=== PATIENT | male | born 1960 | race Caucasian/White ===

== ENCOUNTER → 2018-11-19 | Outpatient (CLI) | payer BC ==
[2018-11-19 16:52] LABS: Ionized Calcium 5.1 mg/dL (4.5-5.3)
[2018-11-20 00:17] LABS: African American GFR (CKD) 107.2 (60.0-200.0); Anion Gap 6.6 mmol/L (4.00-12.00); BUN/Creat Ratio 17.78 Ratio (12.00-20.00); Calcium 8.9 mg/dL (8.7-10.3); Carbon Dioxide 23.4 mmol/L (21.6-31.8); Non-African American GFR(CKD) 92.5 (60.0-200.0); Potassium 4.4 mmol/L (3.5-5.5)
== END ==
LOC: LABWHC1 16:12
PROVIDERS: ATTEND Physical Medicine & Rehabilitation
DX: G89.4 Chronic pain syndrome (principal); M48.02 Spinal stenosis, cervical region; M48.04 Spinal stenosis, thoracic region; M48.062 Spinal stenosis, lumbar region with neurogenic claudication; M51.35 Other intervertebral disc degeneration, thoracolumbar region; M47.812 Spondylosis without myelopathy or radiculopathy, cervical region; M47.814 Spondylosis without myelopathy or radiculopathy, thoracic region; M47.817 Spondylosis without myelopathy or radiculopathy, lumbosacral region; M51.17 Intervertebral disc disorders with radiculopathy, lumbosacral region; M54.6 Pain in thoracic spine; F17.200 Nicotine dependence, unspecified, uncomplicated; E11.8 Type 2 diabetes mellitus with unspecified complications; I10 Essential (primary) hypertension; E78.5 Hyperlipidemia, unspecified; K21.9 Gastro-esophageal reflux disease without esophagitis; G56.03 Carpal tunnel syndrome, bilateral upper limbs
CPT/HCPCS: 36415; 80048; 82330

== ENCOUNTER → 2019-02-11 | Outpatient (CLI) | payer BC ==
--- NOTE | 2019-02-11 09:10 | US ---
EXAMINATION TYPE: US duplex aorta DATE OF EXAM: 02/11/2019 COMPARISON: NONE CLINICAL HISTORY: Z13.6 screening for abdominal aortic aneurysm. EXAM MEASUREMENTS: Abdominal Aorta: Proximal: 2.0cm Mid: 2.4cm Distal: 1.7 Bifurcation: 0.9cm 0.8cm Patient of large body habitus with overlying bowel gas obscuring some portions of aorta. Appears wnl as visualized. IMPRESSION: Visualized portions of the abdominal aorta are within normal limits of size. Some bowel g as and patient body habitus do limit the evaluation evaluation.
== END | disposition home or self-care (01) ==
LOC: RADUSWWP 07:35
PROVIDERS: ATTEND Family Medicine
DX: R14.3 Flatulence (principal)
CPT/HCPCS: 93979

== ENCOUNTER → 2021-10-29 | Outpatient (CLI) | payer BC ==
[2021-10-29 16:55] LABS: INR 0.9 (<1.2); Partial Thromboplastin Time 24.5 sec (22.0-30.0); Prothrombin Time 10.2 sec (9.0-12.0)
[2021-10-29 22:20] LABS: Basophils # (A) 0.06 X 10*3/uL (0.00-0.10); Basophils % (A) 0.6 %; Eosinophils # (A) 0.03 X 10*3/uL (0.04-0.35); Eosinophils % (A) 0.3 %; HCT 44.6 % (39.6-50.0); HGB 14.2 g/dL (13.0-17.0); Immature Grans, Automated 0.5 %; Lymphocytes # (A) 1.28 X 10*3/uL (0.90-5.00); MCH 28.6 pg (27.0-32.0); MCHC 31.8 g/dL (32.0-37.0); MCV 89.9 fL (80.0-97.0); Mean Platelet Volume 11.7 fL (9.5-12.2); Monocytes # (A) 0.95 X 10*3/uL (0.20-1.00); Monocytes % (A) 8.9 %; NRBC Per 100 WBC 0 /100 WBCS (0.0-0.0); Neutrophils # (A) 8.31 X 10*3/uL (1.80-7.70); Neutrophils % (A) 77.7 %; Platelet Count 212 X 10*3/uL (140-440); RBC 4.96 X 10*6/uL (4.40-5.60); RDW 15.2 % (11.5-14.5); WBC 10.68 X 10*3/uL (4.50-10.00)
[2021-10-29 22:54] LABS: ALT 22 U/L (10-49); AST 26 U/L (14-35); African American GFR (CKD) 82.4 (60.0-200.0); Albumin 4.2 g/dL (3.8-4.9); Albumin/Globulin Ratio 1.71 (1.60-3.17); Alkaline Phosphatase 75 U/L (41-126); BUN/Creat Ratio 15.45 Ratio (12.00-20.00); Calcium 9.3 mg/dL (8.7-10.3); Carbon Dioxide 24.6 mmol/L (20.0-27.5); Chloride 104 mmol/L (96-109); Globulin 2.5 g/dL (1.6-3.3); Glucose 117 mg/dL (70-110); Non-African American GFR(CKD) 71.1 (60.0-200.0); Potassium 4.2 mmol/L (3.5-5.5); Sodium 142 mmol/L (135-145); Total Bilirubin <0.15 mg/dL (0.30-1.20); Total Protein 6.7 g/dL (6.2-8.2)
[2021-10-30 04:03] LABS: Appearance,Urine Cloudy (Clear); Bilirubin,Urine Negative (Negative); Blood,Urine Negative (Negative); Color,Urine Yellow (Yellow); Ketones,Urine Negative (Negative); Nitrite,Urine Negative (Negative); Specific Gravity,Urine 1.017 (1.001-1.030)
[2021-10-30 04:15] LABS: Bacteria,Urine None Seen /HPF (None Seen)
== END | disposition home or self-care (01) ==
LOC: LABPAT 16:09
PROVIDERS: ATTEND Orthopaedic Surgery Orthopaedic Surgery of the Spine
DX: Z01.812 Encounter for preprocedural laboratory examination (principal); M48.061 Spinal stenosis, lumbar region without neurogenic claudication
CPT/HCPCS: 80053; 81001; 85025; 85610; 85730; 87070; 93005

== ENCOUNTER → 2021-11-02 | Outpatient (CLI) | payer BC ==
--- NOTE | 2021-11-02 13:56 | XR ---
EXAMINATION TYPE: XR chest 2V DATE OF EXAM: 11/02/2021 COMPARISON: NONE HISTORY: Presurgical testing TECHNIQUE: Frontal and lateral views of the chest are obtained. FINDINGS: There is no focal air space opacity, pleural effusion, or pneumothorax seen. The cardiac silhouette size is within normal limits. There is mild spinal curvature noted, there is thoracic spon dylosis. Eventration of right hemidiaphragm. Aorta is dense. Likely a pectus deformity. The osseous structures are intact. IMPRESSION: No acute cardiopulmonary process.
== END | disposition home or self-care (01) ==
LOC: RADXRMAIN 12:28
PROVIDERS: ATTEND Orthopaedic Surgery Orthopaedic Surgery of the Spine
DX: Z01.818 Encounter for other preprocedural examination (principal)
CPT/HCPCS: 71046

== ENCOUNTER 2021-11-03 10:39 | Observation (INO) | payer BC ==
[~2021-11-03 10:39] MED LIST: DEXAMETHASONE SOD PHOSPHATE 4 MG/ML 1 ML VIAL IV ONE; ONDANSETRON 4 MG/2 ML VIAL IVP ONE; ceFAZolin 1,000 MG in SODIUM CHLORIDE 0.9% IRRIGATIO 1,000 ML IRRIGATION PRN
[2021-11-03] MEDS: LIDOCAINE 1% (10MG/ML) FOR IV START INTRADERMA PRN ×2 (11:20→11:40)
[2021-11-03] MEDS: LACTATED RINGERS 1,000 ML IV SCH ×2 (11:20→11:40)
[2021-11-03 11:39] LABS: Glucose,Whole Blood 127 mg/dL (70-110)
[2021-11-03] MEDS ORDERED: fentaNYL (PF) 50 MCG/ML 2 ML AMP ONE (12:05)
[2021-11-03] MEDS ORDERED: PHENYLEPHRINE-0.9% NACL SYG 1,000 MCG/10 ML SYRINGE ONE (12:05)
[2021-11-03] MEDS ORDERED: GLYCOPYRROLATE 0.2 MG/ML 2 ML VIAL ONE (12:05)
[2021-11-03] MEDS ORDERED: LABETALOL 5 MG/ML VIAL MDV ONE (12:05)
[2021-11-03] MEDS ORDERED: SUCCINYLCHOLINE CHLORIDE 200 MG/10 ML VIAL IV ONE (12:05)
[2021-11-03] MEDS ORDERED: PROPOFOL 10 MG/ML 20 ML VIAL IV ONE (12:05)
[2021-11-03] MEDS ORDERED: LIDOCAINE 2% INJ 20 MG/ML (2 ML VIAL) ONE (12:05)
[2021-11-03] MEDS ORDERED: MIDAZOLAM 2 MG/2 ML VIAL ONE (12:05)
[2021-11-03] MEDS ORDERED: HYDROmorphone (PF) 1 MG/ML ONE (12:05)
[2021-11-03] MEDS ORDERED: KETAMINE 10 MG/ML 20 ML VIAL ONE (12:05)
[2021-11-03] MEDS ORDERED: FUROSEMIDE 10 MG/ML 2 ML VIAL ONE (12:05)
[2021-11-03] MEDS ORDERED: NEOSTIGMINE 1 MG/ML 10 ML VIAL ONE (12:05)
[2021-11-03] MEDS ORDERED: LIDOCAINE 4% LTA KIT (4 ML) TOPICAL ONE (12:05)
[2021-11-03] MEDS ORDERED: ePHEDrine 50 MG/ML 1 ML VIAL ONE (12:05)
[2021-11-03] MEDS ORDERED: ROCURONIUM 10 MG/ML (5 ML VIAL) IV ONE (12:05)
[2021-11-03] MEDS ORDERED: THROMBIN (BOVINE) 5,000 UNIT VIAL TOPICAL ONE (13:23)
[2021-11-03] MEDS ORDERED: GELATIN SPONGE,ABSORB (LARGE) 1 EACH SPONGE TOPICAL ONE (13:23)
[2021-11-03] MEDS ORDERED: BUPIVACAIN-EPI 0.25%-1:200,000 30 ML VIAL SQ ONE (13:23)
[2021-11-03 14:50] LABS: Glucose,Whole Blood 118 mg/dL (70-110)
[2021-11-03] MEDS ORDERED: SODIUM CHLORIDE 0.9% 100 ML with ceFAZolin 2 GM IV ONE ×2 (15:46)
[2021-11-03] MEDS ORDERED: LACTATED RINGERS 1,000 ML IV ONE ×2 (15:46)
[2021-11-03] MEDS ORDERED: BENZOCAINE/MENTHOL LOZENG 1 EACH LOZENGE MUCOUS MEM PRN (17:03)
[2021-11-03] MEDS ORDERED: CYCLOBENZAPRINE 10 MG TAB PO PRN (17:03)
[2021-11-03] MEDS ORDERED: MAGNESIUM HYDROXIDE 2,400 MG/10 ML CUP PO PRN (17:03)
--- NOTE | 2021-11-03 17:04 | XR ---
EXAMINATION TYPE: XR lumbar spine 2 or 3V, FL guidance operating room DATE OF EXAM: 11/03/2021 COMPARISON: NONE HISTORY: Minimally invasive effusion Fluoroscopy support supplied to the referring clinician. See dictated report from orthopedic surgery , 35 seconds fluoroscopy time, single intraoperative C-arm image documents the procedure
[2021-11-03] MEDS ORDERED: NITROGLYCERIN SL TABS 0.4 MG TAB SUBLINGUAL PRN (17:06)
[2021-11-03] MEDS ORDERED: ACETAMINOPHEN TAB 500 MG TAB PO PRN (17:06)
--- NOTE | 2021-11-03 17:16 | P.OP ---
Date of Procedure: 11/03/21 Preoperative Diagnosis: Spondylolisthesis L4 5, severe spinal stenosis L 45 and recurrent stenosis L5- S1, degenerative disc disease, facet cyst L4 5, low back pain, severe lower extremity radiculopathy, lower extremity weakness, history of lumbar decompression L5-S1 Postoperative Diagnosis: Same Anesthesia: GETA Pathology: none sent Condition: stable Disposition: PACU Description of Procedure: DESCRIPTION OF PROCEDURE(S): BRIEF OPERATIVE NOTE Preoperative Diagnosis: Spondylolisthesis L4 5, severe spinal stenosis L 45 and recurrent stenosis L5-S1, degenerative disc disease, facet cyst L4 5, low back pain, severe lower extremity radiculopathy, lower extremity weakness, history of lumbar decompression L5-S1 Postoperative Diagnosis: Same Procedure: Laminectomy and decompression L4 5 Revision laminectomy decompression L5-S1 Computer CT navigation aided Minimally invasive Posterior lateral decompression and facet fusion L4 5 L5-S1 Minimally invasive Transforaminal lumbar interbody fusion for a 360 fusion L4 5 Discectomy for decompression L4 5 Placement of interbody graft L4 5 Use of computer navigation for fusion L4 5 L5-S1 Local autogenous bone grafting Aspiration of bone marrow from the vertebral body pedicle at L4 on the right Use of bone graft extenders Excision of epidural mass of L4 5 presumed facet cyst Use of Cell Saver Surgeon: Dr. Viveros Locator: Romeo LINDSEY who is present throughout the entire the case persistence during positioning, dissection, exposure, visualization, and all crucial elements of the case as well as closure. Anesthesia: General anesthesia per Dr. Villanueva Estimated blood loss: Approximately 200 mL with 71 mL given back through Cell Saver Complications: None apparent Components implanted: K2M minimally invasive [place] pedicle screw system with screws measuring 6.5 mm in diameter to rods one [place] interbody cage with 10 mL of osteo amp bio4 bone graft substitute and 30 mL of the BX bone fibers to supplement the local autogenous bone graft and bone marrow aspirate Disposition: To recovery room in good stable condition. OPERATIVE INDICATIONS The patient has had severe issues at their lower extremity in her lower back over the past several years with significant worsening over the past several months. Over the past few months the patient had pain at their back and their lower extremities. The patient is having severe radicular symptoms at their lower extremity with weakness. The patient is having significant pain in their back. They are unable to obtain any comfort. We did aggressive conservative treatment with medications therapy and interventional pain management however thery were not having any relief. The patient also showed evidence of a listhesis with some dynamic instability. The patient has been through c onservative treatment. He has also had laminectomy decompression at L5-S1 on the left side in the past some improvement in his left lower extremity when he had his surgery years ago. However he had recurrent symptoms at his back and lower extremities with significant radiculopathy bilateral lower extremity is worse on the left than the right. He was found have a facet cyst and severe stenosis at L4 5 recurrent stenosis L5-S1 with a dynamic listhesis of L4 5 and severe disc degeneration L4 5 and L5-S1 We discussed various treatment options including surgery, and the patient wishes to proceed with surgery We discussed the risk, patient's alternatives and benefits of surgery including but not limited to, risk of bleeding risk of infection, risk of need for further surgery, risk of decreased, loss of motion, muscle function, malunion nonunion, hardware failure, nerve damage, paralysis, heart attack, blindness and . They understood issues with the current pandemic and the possibility of exposure. OPERATIVE SUMMARY After discussing all the risks, patient alternatives and benefits at length, the patient elected to proceed with surgical intervention, signed informed consent, and presented for their procedure. The patient was seen and examined in the preoperative holding area and the surgical site was marked. The patient was given antibiotics and brought to the operating room. The patient was sedated and intubated by anesthesia in standard fashion. The patient was positioned on to the operating room table in a prone position on the appropriate frame which was well-padded and well molded. We were careful to pad any bony prominences and pressure points. We were careful to maintain the patient's cervical spine and good neutral alignment and position throughout. The patient was prepped and draped in a normal standard fashion. An appropriate timeout and keystone protocol performed. We were able to proceed with the surgery. The local wound area was infiltrated with local anesthetic. Over the right iliac crest I was able to make small stab incisions and establish a guidepin screw fixation to the iliac crest 2. I was able place the computer referencing device over the guidepins to establish an appropriate reference point for the Ziem CT navigation. We then were able to place patient in an appropriate drape and do a navigation spin for visualization and 3-D reconstruction of the lumbar spine. I was able utilize C-arm guidance and navigation to establish appropriate position over the pedicles bilaterally at the appropriate levels . With the appropriate levels at L4 5 and L5-S1 confirmed was able to make small incisions over the appropriate pedicle sites bilaterally. Utilizing the computer navigation device I was able to establish bony landmarks at the right iliac crest for a bony reference point for the navigation device. I was able to establish a Jamshidi needle over the lateral aspect of the pedicle and advanced the trocar into the pedicle being careful not to breech superiorly inferiorly medially or laterally using computer navigation device. Position was confirmed regularly with AP and lateral images on C-arm and with the computer navigation device at the appropriate levels bilaterally. I was able to establish the trocar into the pedicle appropriately into the posterior aspect of the vertebral body bilaterally at the appropriate levels. This was done at each of the pedicle positions and each of the vertebrae. At the superior vertebrae I was able to take approximately 25 mL of bone aspiration for use later in the case to supplement the allograft and autograft bone. I was able place the guidewire into the trocar and into the vertebral body appropriately under C-arm guidance. Dissection was taken down over the wire to the appropriate starting position for the screw placed. The appropriate length screw was chosen, threaded over the guidewire and screwed appropriately into the pedicle and vertebral body under C-arm guidance in excellent alignment and position with good bony purchase. This is done at each of the screw sites at the appropriate levels at L4 5 and S1.. With the screws intact I extended the incision to connect the screw hole sites on the most symptomatic side. I dissected down to establish access over the pars and lamina to the base of the spinous process. I was able to expose the facet joint. The capsule the facet was taken down and showed some facet arthrosis at the joint. I was able to use a combination of curettes and [place] rongeurs and a high-speed drill to take down the facet joint and do a facetectomy. I was able get excellent foraminal decompression and central decompression with undermining across midline to perform a laminectomy centrally and contralaterally. I was able get good central decompression. The ligamentum flavum was taken down to further decompress centrally and at bilateral neural foramen. At L4 5 there was a large epidural mass which was a presumed facet cyst. It seemed to extend from the L4 5 left facet and was thickened and filled with synovial type fluid. Parts of the cyst were adherent to the dura. I had to remove a significant portion of the facet cyst tagged gain further decompression. I had to leave some of the cyst that was adherent to the dura intact as trying to remove it further may have damaged the neural structures. I was able get free mobile nerve root and get excellent decompression around the facet cyst L4 5. I attempted to pass some assessment from the cyst however it was inadvertently discarded. At L4 5 I was able to expose the disc space and visualize the traversing nerve root. Note was made of some disc protrusion and disc herniation that was abutting the traversing nerve root at the level causing further compression of the nerve root. I was able to establish a annulotomy at the appropriate level protecting soft tissue and neural structures. Note was made of some disc desiccation at the disc. I performed a complete discectomy with accommodation of curettes and rasps and scrapers. I was able get good endplate preparation at the disc space. I sized for the appropriate size interbody spacer protecting the soft tissue and neural structures. The wound was copiously irrigated and suctioned dry. There is no evidence of any dural tear or leak. I was able to pack the disc space with local autogenous bone graft as well as a small amount of bone graft which was also placed into the interbody cage itself. Protecting the soft tissue structures and neural structures I was able place the interbody cage in good alignment and good position with good fit and fill at the interbody space. Position was confirmed with C-arm guidance. This was all completed L4 5 however at L5-S1 was not able to get good access to the disc space. I was able to get good decompression decided to forego the discectomy and interbody cage placement at L5-S1. With the screws intact I felt I had good structural stability at L4 5 and S1. Good hemostasis maintained. There is no evidence of any dural tear or leak. The wound was irrigated and suctioned dry. With the hardware intact, intraoperative C-arm imaging was again taken which showed good alignment and position of the hardware at the appropriate levels at L4-L5 and S1. We were then able to measure, contour and place the rods and appropriate hardware bilaterally. I was able to place capcrews, tighten them down, and torque them with the torque screwdriver appropriately. With this intact I was able to place the local autogenous bone graft with additional bone graft enhancer as necessary into the posterior lateral gutters over the decorticated transverse processes and facet joints on the contralateral side. The remainder of the bone graft was placed over the facet joint on the contralateral side after taking down the facet joint capsule. With the bone graft intact, a stable construct, and good decompression at the appropriate levels, we were able to proceed with closure. Good hemostasis was maintained. There is no evidence of dural tear or leak. The fascia was closed for a watertight closure. he subcuticular tissue was closed with absorbable suture. The wound was cleaned and dried and dressed with the appropriate dressing. The drapes were broken down. The patient was gently rolled back onto their hospital bed being careful to maintain their cervical spine and good neutral alignment and position. They were woken up by anesthesia, extubated, and brought to the recovery room in good stable condition. The patient will be admitted to the hospital for appropriate postoperative care, medical management and monitoring. We will continue to follow them closely about the postoperative course.
[2021-11-03] MEDS: HYDROmorphone 0.5 MG/0.5 ML SYRINGE IVP PRN ×2 (17:25→17:45)
[2021-11-03] MEDS ORDERED: hydrALAZINE HCL 20 MG/ML 1 ML VIAL IVP ONE (17:48)
[2021-11-03] MEDS ORDERED: fentaNYL (PF) 50 MCG/ML 2 ML AMP IVP ONE (18:05)
[2021-11-03] MEDS: diazePAM 5 MG TAB PO PRN (19:26)
[2021-11-03] MEDS: HYDROcodone/APAP 5-325MG 1 EACH TAB PO PRN ×2 (19:26→23:31)
[2021-11-03] MEDS: METOPROLOL TARTRATE 25 MG TAB PO SCH (19:32)
[2021-11-03] MEDS: BACLOFEN 10 MG TAB PO SCH (19:32)
[2021-11-03] MEDS: ATORVASTATIN 80 MG TAB PO SCH (19:32)
[2021-11-03] MEDS: NITROFURANTOIN MONOHYD/M-CRYST 100 MG CAP PO SCH (19:32)
[2021-11-03] MEDS: DOXAZOSIN 2 MG TAB PO SCH (19:32)
[2021-11-03] MEDS: metFORMIN 500 MG TAB PO SCH (19:32)
[2021-11-03] MEDS: SODIUM CHLORIDE 0.9% 1,000 ML IV SCH (19:38)
[2021-11-03] MEDS: ONDANSETRON 4 MG/2 ML VIAL IVP PRN (20:15)
--- NOTE | 2021-11-04 00:49 | P.CONS ---
History of Present Illness - Reason for Consult Consult date: 11/03/21 - History of Present Illness Patient is a 61-year-old male with a PMH of type II DM, hypertension, hyperlipidemia, and spinal stenosis who was admitted for an elective laminectomy and spinal decompression. The patient underwent the procedure earlier today with no immediate postoperative consultations and was seen postoperatively on the surgical unit. He reported ongoing lower back pain, rated at 8 out of 10 at the time of interview. Also reports some mild numbness of the left leg. Patient has been out of bed and has passed urine and flatus. He reports compliance with all his medications at home. Denied expressing chest discomfort, shortness of breath, nausea, vomiting, fever, chills, cough. Review of systems: Pertinent positives and negatives as discussed in HPI, a complete review of systems was performed and all other systems are negative. Physical examination: General: non toxic, no distress, appears at stated age, obese Derm: no unusual rashes/lesions, warm Head: atraumatic, normocephalic, symmetric Eyes: EOMI, no lid lag, anicteric sclera, pupils equal round reactive to light ENT: Nose and ears atraumatic Neck: No cervical lymphadenopathy, trachea midline, supple Mouth: no lip lesion, mucus membranes moist Cardiovascular: S1S2 reg, no murmur, positive dorsalis pedis pulse bilateral, no edema Lungs: CTA bilateral, no rhonchi, no rales, no accessory muscle use Abdominal: soft, nontender to palpation, no guarding Ext: no gross muscle atrophy, no contractures, Neuro: CN II-XI grossly intact, no gross focal neuro deficits Psych: Alert, oriented, appropriate affect Assessment/plan Chronic conditions: Diabetes, hypertension, hyperlipidemia -Continue with home meds Status post laminectomy and spinal decompression -Defer management including pain control and DVT prophylaxis to the primary surgical service We appreciate this opportunity to be involved in this patient's care. We will follow the patient with you. For any further questions, please not hesitate to contact the sound inpatient team. Past Medical History Past Medical History: COPD, Diabetes Mellitus, GERD/Reflux, Hyperlipidemia, Hypertension, Musculoskeletal Disorder, Osteoarthritis (OA) Additional Past Medical History / Comment(s): spinal stenosis, cyst on lumbar vertebrae, DDD, esophageal Nutcracker syndrome-takes nitro for prn, currently taking A/B for UTI History of Any Multi-Drug Resistant Organisms: None Reported Past Surgical History: Back Surgery, Orthopedic Surgery, Tonsillectomy Additional Past Surgical History / Comment(s): lumbar laminectomy years ago, thoracic back surg., ORIF right ankle, cyst removed right ankle, left knee arthroscopy, mult. surgs. right knee, epidural pain procedures Past Anesthesia/Blood Transfusion Reactions: No Reported Reaction Past Psychological History: No Psychological Hx Reported Smoking Status: Current every day smoker Past Alcohol Use History: Rare Additional Past Alcohol Use History / Comment(s): 1ppd for 40 yrs. Past Drug Use History: Marijuana Additional Drug Use History / Comment(s): gummies occasionally - Past Family History Mother Family Medical History: Hyperlipidemia Medications and Allergies Home Medications Medication Instructions Recorded Confirmed Type Acetaminophen [Tylenol Extra 500 mg PO Q6HR PRN 11/02/21 11/02/21 History Strength] Aspirin 81 mg PO DAILY 11/02/21 11/02/21 History Atorvastatin [Lipitor] 80 mg PO HS 11/02/21 11/02/21 History Baclofen [Lioresal] 10 mg PO TID 11/02/21 11/02/21 History Cholecalciferol (Vitamin D3) 125 mcg PO DAILY 11/02/21 11/02/21 History [Vitamin D3 (125 MCG = 5,000 IU)] Cinnamon Bark [Cinnamon] 500 mg PO DAILY 11/02/21 11/02/21 History Fluticasone Propionate [Flonase 1 spray EA NOSTRIL DAILY 11/02/21 11/02/21 History Allergy Relief] HYDROcodone/APAP 5-325MG [[place]osen[place]n 1 tab PO BID PRN 11/02/21 11/02/21 History 5-325] Metoprolol Tartrate [Lopressor] 25 mg PO BID 11/02/21 11/02/21 History Nitrofurantoin Monohyd/M-Cryst 100 mg PO Q12HR 11/02/21 11/02/21 History [Macrobid] Nitroglycerin 0.4 mg SL AC-TID PRN 11/02/21 11/02/21 History Pantoprazole [Protonix] 40 mg PO DAILY 11/02/21 11/02/21 History Terazosin [Hytrin] 2 mg PO HS 11/02/21 11/02/21 History amLODIPine [Norvasc] 10 mg PO DAILY 11/02/21 11/02/21 History lisinopriL [Zestril] 30 mg PO DAILY 11/02/21 11/02/21 History metFORMIN HCL [Glucophage] 500 mg PO BID 11/02/21 11/02/21 History Allergies Allergy/AdvReac Type Severity Reaction Status Date / Time celecoxib [From Celebrex] Allergy red & Verified 11/01/21 15:53 flushed, shaking Physical Exam Vitals: Vital Signs Temp Pulse Pulse Resp BP Pulse Ox 11/03/21 20:00 104 H 11/03/21 18:57 98.0 F 96 20 191/77 97 11/03/21 18:40 65 16 150/70 97 11/03/21 18:25 70 16 155/77 97 11/03/21 18:10 68 17 189/94 98 11/03/21 17:55 70 16 190/95 99 11/03/21 17:40 73 16 174/83 98 11/03/21 17:25 82 16 192/92 100 11/03/21 17:12 97.2 F L 78 18 190/84 99 11/03/21 11:14 97.8 F 68 16 193/97 97 Intake and Output 11/03/21 11/03/21 11/04/21 14:59 22:59 06:59 Intake Total 2050 1550 Output Total 1350 Balance 2050 200 Intake: IV 2050 1550 Output: Urine 1150 Estimated Blood Loss 200 Other: Voiding Method Indwelling Catheter Weight 103.1 kg 103.1 kg Results Labs: Abnormal Lab Results - Last 24 Hours (Table) 11/03/21 11/03/21 Range/Units 11:28 14:47 POC Glucose (mg/dL) 127 H 118 H (70-110) mg/dL
[2021-11-04] MEDS: HYDROcodone/APAP 5-325MG 1 EACH TAB PO PRN ×5 (04:08→20:40)
[2021-11-04] MEDS: diazePAM 5 MG TAB PO PRN ×3 (04:41→20:40)
[2021-11-04] MEDS: ONDANSETRON 4 MG/2 ML VIAL IVP PRN ×2 (04:41→11:22)
[2021-11-04] MEDS: HYDROmorphone 1 MG/ML 1 ML SYRINGE IVP PRN ×3 (07:32→21:44)
[2021-11-04] MEDS: NITROFURANTOIN MONOHYD/M-CRYST 100 MG CAP PO SCH ×2 (10:40→20:41)
[2021-11-04] MEDS: SENNOSIDES-DOCUSATE SODIUM 1 EACH TAB PO SCH (10:40)
[2021-11-04] MEDS: ASPIRIN 81 MG PO SCH (10:40)
[2021-11-04] MEDS: PANTOPRAZOLE 40 MG TABLET PO SCH (10:40)
[2021-11-04] MEDS: BACLOFEN 10 MG TAB PO SCH ×3 (10:40→21:37)
[2021-11-04] MEDS: CHOLECALCIFEROL 125 MCG (5000 IU) TABLET PO SCH (10:40)
[2021-11-04] MEDS: lisinopriL 10 MG TAB PO SCH (10:41)
[2021-11-04] MEDS: amLODIPine 10 MG TAB PO SCH (10:41)
[2021-11-04] MEDS: METOPROLOL TARTRATE 25 MG TAB PO SCH ×2 (10:41→20:41)
[2021-11-04] MEDS: metFORMIN 500 MG TAB PO SCH (10:41)
[2021-11-04 10:43] LABS: Basophils # (A) 0.05 X 10*3/uL (0.00-0.10); Basophils % (A) 0.3 %; Eosinophils # (A) 0.42 X 10*3/uL (0.04-0.35); Eosinophils % (A) 2.5 %; HCT 41.3 % (39.6-50.0); HGB 13.3 g/dL (13.0-17.0); Immature Grans, Automated 0.5 %; Lymphocytes # (A) 0.95 X 10*3/uL (0.90-5.00); Lymphocytes % (A) 5.7 %; MCHC 32.2 g/dL (32.0-37.0); MCV 90.2 fL (80.0-97.0); Monocytes # (A) 1.28 X 10*3/uL (0.20-1.00); Monocytes % (A) 7.7 %; NRBC Per 100 WBC 0 /100 WBCS (0.0-0.0); Neutrophils # (A) 13.79 X 10*3/uL (1.80-7.70); Neutrophils % (A) 83.3 %; Platelet Count 190 X 10*3/uL (140-440); RBC 4.58 X 10*6/uL (4.40-5.60); RDW 15.7 % (11.5-14.5); WBC 16.58 X 10*3/uL (4.50-10.00)
[2021-11-04] MEDS: FLUTICASONE 50MCG/SPRAY NASAL 16GM EA NOSTRIL SCH (10:48)
[2021-11-04 10:56] LABS: African American GFR (CKD) 82.4 (60.0-200.0); Anion Gap 13.7 mmol/L (10.00-18.00); BUN/Creat Ratio 14.27 Ratio (12.00-20.00); Blood Urea Nitrogen 15.7 mg/dL (9.0-27.0); Calcium 8.3 mg/dL (8.7-10.3); Carbon Dioxide 24.3 mmol/L (20.0-27.5); Non-African American GFR(CKD) 71.1 (60.0-200.0)
[2021-11-04] MEDS ORDERED: PROCHLORPERAZINE INJ 10 MG/2 ML VIAL IVP PRN (11:03)
[2021-11-04] MEDS ORDERED: DEXTROSE 50% SYRINGE 50 ML IVP PRN ×2 (11:11)
--- NOTE | 2021-11-04 11:27 | P.PN ---
Subjective Progress Note Date: 11/04/21 Hospital course: Patient is a very pleasant 61-year-old male with a past medical history of hypertension, hyperlipidemia, type II pzr-mzxzuio-vfmiunnfp diabetes mellitus, BPH, and severe spinal stenosis. Patient is currently admitted under orthospine surgical team and is status post elective laminectomy and spinal decompression completed on 11/03/[address] Viveros. Patient underwent a revision laminectomy and decompression L5 through S1 and a laminectomy and decompression of L4 through L5. We were consulted for continued medical management throughout patient's hospitalization. Physical exam: Patient seen and fully evaluated at bedside this morning. Patient sitting up in chair. Drain remains in place to lower back and dressing intact. Patient reports postoperative pain is currently managed at this time. Reaves catheter remains in place. Patient reports he has been experiencing some postoperative nausea and vomiting. Compazine ordered in addition to Jamie RN instructed she may rotate these medications every 4 hours as needed for nausea/vomiting. Patient denies having any new onset numbness/tingling/weakness in his extremities. Patient does report he continues to have previously experienced. Numbness and tingling to bilateral lower extremities that he believes has slightly improved since surgery. Vital signs reviewed and stable. General: Nontoxic, no distress and appears stated age. Derm: Skin warm and dry, normal coloration for ethnicity. Head: Atraumatic, normocephalic and symmetric. Eyes: EOMs intact, no lid lag, and anicteric sclera Mouth: no lip lesions, mucus membranes moist Cardiovascular: regular rate and rhythm with normal S1S2, no murmur, positive posterior tibial pulses bilaterally, and cap refill < 2 seconds. Lungs: Respirations even, regular, and unlabored on room air. Lungs CTA bilaterally, no rhonchi, no rales, no wheezing, and no accessory muscle usage. Abdominal: soft, nontender to palpation, no guarding, no appreciable organomegaly Ext: ROM intact. No gross muscle atrophy, no edema, no contractures Neuro: Speech clear, face symmetrical and CN II-XII grossly intact with no noted focal neuro deficits Psych: Alert and oriented to person, place, time, and situation. Appropriate and pleasant affect. Assessment and Plan of Care: Leukocytosis -Likely reactive, resulting both from surgery and treatment with steroids. -No signs of infection at this time. -We will continue to monitor with repeat a.m. labs. Status post laminectomy and decompression of L4 through L5 and revision laminectomy and decompression L5 through S1 -Surgical procedure completed 11/03/[address] Viveros. -Management per primary admitting orthospine surgical team including DVT prophylaxis, pain management, weightbearing, and PT/OT. -Patient currently on daily aspirin 81 mg and SCDs for DVT prophylaxis. Type 2 diabetes mellitus with hyperglycemia -Morning glucose 164 -Metformin held during hospitalization and patient placed on glycemic protocol with NovoLog sliding scale. Hypertension -Monitor vital signs and continue daily medication regimen with amlodipine, lisinopril, and metoprolol. Hyperlipidemia -Continue daily medication regimen with atorvastatin 80 mg nightly. -Continue heart healthy and carb consistent diet. BPH -Continue daily medication regimen with Doxazosin 2 mg nightly. Thank you for allowing us to participate in the care of this pleasant patient. Do not hesitate to contact us with questions. Someone can be reached from the [facility] hospitalist group all hours of the day at [phone] or via [employer]. I reviewed the documentation as provided by the MECHE above, who is the original author of this note. I agree with the documented assessment and plan, with the following changes: none Objective - Vital Signs Vital signs: Vital Signs Temp 98.9 F 11/04/21 07:33 Pulse 102 H 11/04/21 07:33 Resp 17 11/04/21 07:33 BP 165/82 11/04/21 07:33 Pulse Ox 94 L 11/04/21 08:41 FiO2 Intake & Output 11/03/21 11/04/21 11/04/21 18:59 06:59 18:59 Intake Total 3601 Output Total 1350 Balance 2251 Weight 103.1 kg Intake: IV 3601 Output: Urine 1150 Estimated Blood Loss 200 Other: Voiding Method Indwelling Catheter - Labs CBC & Chem 7: 11/04/21 07:23 11/04/21 07:23 Labs: Abnormal Lab Results - Last 24 Hours (Table) 11/03/21 11/03/21 Range/Units 11:28 14:47 POC Glucose (mg/dL) 127 H 118 H (70-110) mg/dL
--- NOTE | 2021-11-04 11:55 | P.PN ---
Progress Note - Text Progress Note Date: 11/04/21 Postoperative day #1 Patient is seen and examined today at bedside. The patient has some pain around the surgical site as expected. Pain is being controlled with medication. The patient feels he may have some improvement in his leg pain but he still has numbness tingling and is having significant pain in his back from his surgery. He is not able to void yet he still has a Reaves intact. He says he was nauseous last night but is not having nausea this morning. Physical Exam Afebrile with stable vital signs Abdomen is soft nontender. Chest has good excursion deep and space expiration The incision site is clean dry and intact. No erythema there is no purulence. Extremities have not had neurologic change from prior to surgery. He has sustained dorsal flexion plantar flexion and EHL but still has some weakness particularly to the left which is unchanged from prior to surgery the incision site is dry and healing appropriately Calves and thighs were soft nontender without evidence of DVT. Assessment/Plan Postoperative day #1 status post minimally invasive decompression fusion L45 L5- S1 for severe cervical stenosis with spondylolisthesis lower extremity radiculopathy and facet cyst Patient is progressing as expected from the surgery. He is already up in a chair which is encouraging but would like him to mobilize further so that he can void on his own. He saw his Reaves intact and we should try to get the Reaves out this evening if he is able. Hopefully his pain will continue to improve and he will start have better function in his lower extremities and we will continue his mobilization. We will continue to increase the patient's mobilization with therapy. We will continue pain control with oral or IV medications. We'll continue to follow patient closely. He may need some help with planning for his facility at home after discharge perhaps in 1-2 days.
[2021-11-04] MEDS: HYDROmorphone 0.5 MG/0.5 ML SYRINGE IVP PRN (12:24)
[2021-11-04] MEDS: SODIUM CHLORIDE 0.9% 1,000 ML IV SCH ×2 (12:32→23:46)
[2021-11-04 12:42] LABS: Glucose,Whole Blood 126 mg/dL (70-110)
[2021-11-04] MEDS: INSULIN ASPART (NovoLOG) 100 UNIT/ML VIAL SQ SCH ×3 (12:49→21:40)
[2021-11-04 17:00] LABS: Glucose,Whole Blood 123 mg/dL (70-110)
[2021-11-04] MEDS: ATORVASTATIN 80 MG TAB PO SCH (20:41)
[2021-11-04] MEDS: DOXAZOSIN 2 MG TAB PO SCH (20:41)
[2021-11-04 21:39] LABS: Glucose,Whole Blood 148 mg/dL (70-110)
[2021-11-05] MEDS: HYDROmorphone 0.5 MG/0.5 ML SYRINGE IVP PRN (02:00)
[2021-11-05] MEDS: HYDROcodone/APAP 5-325MG 1 EACH TAB PO PRN ×2 (06:53→10:05)
[2021-11-05] MEDS: diazePAM 5 MG TAB PO PRN (06:54)
[2021-11-05 07:06] LABS: Glucose,Whole Blood 138 mg/dL (70-110)
[2021-11-05] MEDS: INSULIN ASPART (NovoLOG) 100 UNIT/ML VIAL SQ SCH (07:18)
[2021-11-05] MEDS: METOPROLOL TARTRATE 25 MG TAB PO SCH (07:25)
[2021-11-05] MEDS: NITROFURANTOIN MONOHYD/M-CRYST 100 MG CAP PO SCH (07:26)
[2021-11-05] MEDS: SENNOSIDES-DOCUSATE SODIUM 1 EACH TAB PO SCH (07:26)
[2021-11-05] MEDS: lisinopriL 10 MG TAB PO SCH (07:26)
[2021-11-05] MEDS: amLODIPine 10 MG TAB PO SCH (07:26)
[2021-11-05] MEDS: ASPIRIN 81 MG PO SCH (07:26)
[2021-11-05] MEDS: CHOLECALCIFEROL 125 MCG (5000 IU) TABLET PO SCH (07:26)
[2021-11-05] MEDS: BACLOFEN 10 MG TAB PO SCH (07:26)
[2021-11-05] MEDS: PANTOPRAZOLE 40 MG TABLET PO SCH (07:27)
[2021-11-05 07:30] VITALS: RESP 18; TEMP 97.8
--- NOTE | 2021-11-05 08:31 | P.DS ---
Providers Date of admission: 11/04/21 13:43 Expected date of discharge: 11/05/21 Attending physician: Ni Viveros Consults: 11/03/21 17:03 Consult Physician Routine Consulting Provider: Stephane Pond Consult Reason/Comments: Medical management Do you want consulting provider notified?: Yes Primary care physician: Jamal Almaguer - Discharge Diagnosis(es) (1) S/P lumbar fusion Current Visit: Yes Status: Acute (2) Spondylolisthesis at L4-L5 level Current Visit: Yes Status: Acute (3) Lumbar stenosis Current Visit: Yes Status: Acute (4) Lumbosacral stenosis Current Visit: Yes Status: Acute (5) Low back pain Current Visit: Yes Status: Acute (6) Radiculopathy with lower extremity symptoms Current Visit: Yes Status: Acute (7) Lower extremity weakness Current Visit: Yes Status: Acute (8) History of laminectomy Current Visit: Yes Status: Acute (9) Hypertension Current Visit: Yes Status: Acute (10) Hyperlipidemia Current Visit: Yes Status: Acute (11) Type 2 diabetes mellitus Current Visit: Yes Status: Acute (12) Irritable bowel syndrome Current Visit: Yes Status: Acute (13) Constipation Current Visit: Yes Status: Acute Hospital Course: This is a pleasant 61-year-old male who presented with L4-5 spondylolisthesis, L4-5 severe spinal spinal stenosis, L5-S1 and recurrent stenosis, lumbar degenerative disc disease, L4-5, listhesis, low back pain, severe lower extremity radiculopathy, lower extremity weakness, and history of lumbar decompression at L5-S1 who who failed outpatient conservative therapy. He was admitted for an L4-5 and L5-S1 minimally invasive posterior lateral decompression and fusion with transforaminal lumbar interbody fusion at L4-5 and revision decompression at L5-S1. The patient tolerated the procedure well and did well postoperatively. He has been able to ambulate to the restroom independently. He is utilizing a walker. He has a walker at home. He feels he is ready for discharge home today. Condition on day of discharge stable. Patient will be discharged home. Patient was cleared preoperatively for surgery by Dr. Almaguer. Patient currently denies any nausea, vomiting, fever, or chills. Patient is eating and voiding freely without difficulty. Patient may shower Optifoam dressing intact. Patient may remove Optifoam dressing in 3 days and shower without a dressing at that time. Patient should refrain from driving until at least after their first follow-up appointment in the office.P Atient should avoid excessive bending, lifting, and twisting; no lifting greater than 10 pounds. MAPS has been reviewed today, , with an Overall Overdose Risk Score of . An "Opiod Start Talking" Form has been signed and placed in the patient's chart. A prescription has been written for Patient is also given prescription for Senokot 1 tab twice a day as the for constipation, cyclobenzaprine 10 mg 1 3 times a day is seen for muscle spasm, and Zofran 4 mg 1 tab every 6 hours as needed for nausea. He should avoid anti-inflammatory medications over the next 6 weeks postoperatively. Patient's other medical diagnoses include hypertension, hyperlipidemia, type 2 diabetes, irritable bowel syndrome, and constipation Physical Exam on day of discharge: Patient is awake, alert, and oriented 3 Vital signs stable Good chest excursion with deep inspiration and expiration Abdomen soft nontender No signs or symptoms of DVT; no calf pain Extensor hallucis longus, plantarflexion, and dorsiflexion positive sustained bilateral lower extremities Some increased pain at the left ankle with dorsiflexion and plantarflexion with active range of motion but not passive range of motion Surgical incision sites are dry and intact with a couple small spots of dried blood over the lumbar incision sites; no erythema, purulence, or signs of infection Optifoam dressing intact Procedures: L4-5 and L5-S1 minimally invasive posterior lateral decompression and fusion with transforaminal lumbar interbody fusion at L4-5 and revision decompression at L5-S1 Patient Condition at Discharge: Stable Plan - Discharge Summary Discharge Rx Participant: Yes New Discharge Prescriptions: New HYDROcodone/APAP 5-325MG [Morganza 5] 1 each PO Q4HR PRN #42 tab PRN Reason: Pain Cyclobenzaprine [Flexeril] 10 mg PO TID PRN #60 tab PRN Reason: Muscle Spasm Sennosides-Docusate Sodium [Senokot-S] 1 tab PO BID PRN #60 tablet PRN Reason: Constipation Ondansetron [Zofran] 4 mg PO Q6HR PRN #30 tab PRN Reason: Nausea No Action Cholecalciferol (Vitamin D3) [Vitamin D3 (125 MCG = 5,000 IU)] 125 mcg PO DAILY metFORMIN HCL [Glucophage] 500 mg PO BID Metoprolol Tartrate [Lopressor] 25 mg PO BID amLODIPine [Norvasc] 10 mg PO DAILY Atorvastatin [Lipitor] 80 mg PO HS Aspirin 81 mg PO DAILY lisinopriL [Zestril] 30 mg PO DAILY Nitroglycerin 0.4 mg SL AC-TID PRN PRN Reason: Esophageal Spasm Cinnamon Bark [Cinnamon] 500 mg PO DAILY Terazosin [Hytrin] 2 mg PO HS Pantoprazole [Protonix] 40 mg PO DAILY HYDROcodone/APAP 5-325MG [Morganza 5-325] 1 tab PO BID PRN PRN Reason: Pain Baclofen [Lioresal] 10 mg PO TID Fluticasone Propionate [Flonase Allergy Relief] 1 spray EA NOSTRIL DAILY Acetaminophen [Tylenol Extra Strength] 500 mg PO Q6HR PRN PRN Reason: Pain Nitrofurantoin Monohyd/M-Cryst [Macrobid] 100 mg PO Q12HR Discharge Medication List Acetaminophen [Tylenol Extra Strength] 500 mg PO Q6HR PRN 11/02/21 [History] Aspirin 81 mg PO DAILY 11/02/21 [History] Atorvastatin [Lipitor] 80 mg PO HS 11/02/21 [History] Baclofen [Lioresal] 10 mg PO TID 11/02/21 [History] Cholecalciferol (Vitamin D3) [Vitamin D3 (125 MCG = 5,000 IU)] 125 mcg PO DAILY 11/02/21 [History] Cinnamon Bark [Cinnamon] 500 mg PO DAILY 11/02/21 [History] Fluticasone Propionate [Flonase Allergy Relief] 1 spray EA NOSTRIL DAILY 11/02/21 [History] HYDROcodone/APAP 5-325MG [Morganza 5-325] 1 tab PO BID PRN 11/02/21 [History] Metoprolol Tartrate [Lopressor] 25 mg PO BID 11/02/21 [History] Nitrofurantoin Monohyd/M-Cryst [Macrobid] 100 mg PO Q12HR 11/02/21 [History] Nitroglycerin 0.4 mg SL AC-TID PRN 11/02/21 [History] Pantoprazole [Protonix] 40 mg PO DAILY 11/02/21 [History] Terazosin [Hytrin] 2 mg PO HS 11/02/21 [History] amLODIPine [Norvasc] 10 mg PO DAILY 11/02/21 [History] lisinopriL [Zestril] 30 mg PO DAILY 11/02/21 [History] metFORMIN HCL [Glucophage] 500 mg PO BID 11/02/21 [History] Cyclobenzaprine [Flexeril] 10 mg PO TID PRN #60 tab 11/05/21 [Rx] HYDROcodone/APAP 5-325MG [Morganza 5] 1 each PO Q4HR PRN #42 tab 11/05/21 [Rx] Ondansetron [Zofran] 4 mg PO Q6HR PRN #30 tab 11/05/21 [Rx] Sennosides-Docusate Sodium [Senokot-S] 1 tab PO BID PRN #60 tablet 11/05/21 [Rx] Follow up Appointment(s)/Referral(s): Romeo Salas, NITIN [PHYSICIAN COMPOUNDING PHARMACY TECHNICIAN] - 2 Weeks (Patient may follow-up with Romeo Salas PA-C or Dr. Crispin Viveros at [facility] in 2-3 weeks following discharge. ) Activity/Diet/Wound Care/Special Instructions: 1. Patient may shower with Optifoam dressing intact. 2. Patient may remove Optifoam dressing in 3 days and shower without a dressing at that time. 3. Patient should refrain from driving until at least after their first follow- up appointment in the office. 4. Patient should avoid excessive bending, twisting, lifting; avoid overhead lifting; no lifting greater than 10 pounds 5. Take medications as prescribed 6. Patient should avoid anti-inflammatory medications over the next 6 weeks postoperatively 7. Do not soak in tub 8. Patient may utilize walker to aid in ambulation as needed Discharge Disposition: HOME SELF-CARE
--- NOTE | 2021-11-05 09:26 | P.PN ---
Subjective Progress Note Date: 11/05/21 Hospital course: Patient is a very pleasant 61-year-old male with a past medical history of hypertension, hyperlipidemia, type II [id number]-mclcjnked diabetes mellitus, BPH, and severe spinal stenosis. Patient is currently admitted under orthospine surgical team and is status post elective laminectomy and spinal decompression completed on 11/03/[address] Viveros. Patient underwent a revision laminectomy and decompression L5 through S1 and a laminectomy and decompression of L4 through L5. We were consulted for continued medical management throughout patient's hospitalization. Physical exam: Patient seen and fully evaluated at bedside this morning. Patient was sitting up in chair at bedside... He reports continued control of postoperative pain, but does report occasional nausea after taking pain medications.. Reaves catheter was removed and patient urinating without any difficulties with no reports of postvoid residuals. Morning blood pressure elevated at 182/73, p atient received morning medications and repeat blood pressure much improved at 138/79.. Patient denies having any complaints or concerns at this time. Orthopedic surgery team planning for discharge today. Patient is medically stable for discharge at this time. Recommend continued monitoring of blood pressure after discharge. Patient encouraged to monitor blood pressures daily and document findings in a daily log/sternal to bring with him to next doctor's appointment to ensure continued proper control of hypertension. Vital signs reviewed and stable. General: Nontoxic, no distress and appears stated age. Derm: Skin warm and dry, normal coloration for ethnicity. Head: Atraumatic, normocephalic and symmetric. Eyes: EOMs intact, no lid lag, and anicteric sclera Mouth: no lip lesions, mucus membranes moist Cardiovascular: regular rate and rhythm with normal S1S2, no murmur, positive posterior tibial pulses bilaterally, and cap refill < 2 seconds. Lungs: Respirations even, regular, and unlabored on room air. Lungs CTA bilaterally, no rhonchi, no rales, no wheezing, and no accessory muscle usage. Abdominal: soft, nontender to palpation, no guarding, no appreciable organomeg aida Ext: ROM intact. No gross muscle atrophy, no edema, no contractures Neuro: Speech clear, face symmetrical and CN II-XII grossly intact with no noted focal neuro deficits Psych: Alert and oriented to person, place, time, and situation. Appropriate and pleasant affect. Assessment and Plan of Care: Leukocytosis, improving -Likely reactive, resulting both from surgery and treatment with steroids. -No signs of infection at this time. -We will continue to monitor with repeat a.m. labs. Acute postoperative blood loss anemia. Expected finding in stable with hemoglobin of 11.8. Status post laminectomy and decompression of L4 through L5 and revision laminectomy and decompression L5 through S1 -Surgical procedure completed 11/03/[address] Viveros. -Management per primary admitting orthospine surgical team including DVT prophylaxis, pain management, weightbearing, and PT/OT. -Patient currently on daily aspirin 81 mg and SCDs for DVT prophylaxis. Type 2 diabetes mellitus with hyperglycemia -Morning glucose 164 -Metformin held during hospitalization and patient placed on glycemic protocol w ith NovoLog sliding scale, may resume metformin upon discharge Hypertension -Monitor vital signs and continue daily medication regimen with amlodipine, lisinopril, and metoprolol. Hyperlipidemia -Continue daily medication regimen with atorvastatin 80 mg nightly. -Continue heart healthy and carb consistent diet. BPH -Continue daily medication regimen with Doxazosin 2 mg nightly. Thank you for allowing us to participate in the care of this pleasant patient. Do not hesitate to contact us with questions. Someone can be reached from the [facility] hospitalist group all hours of the day at [phone] or via [place]. I reviewed the documentation as provided by the MECHE above, who is the original author of this note. I agree with the documented assessment and plan, with the following changes: none Objective - Vital Signs Vital signs: Vital Signs Temp 97.8 F 11/05/21 07:30 Pulse 93 11/05/21 07:30 Resp 18 11/05/21 07:30 BP 182/73 11/05/21 07:30 Pulse Ox 93 L 11/05/21 08:29 FiO2 Intake & Output 11/04/21 11/05/21 11/05/21 18:59 06:59 18:59 Intake Total 4000 400 Balance 4000 400 Intake: Oral 4000 400 Other: Voiding Method Indwelling Catheter # Voids 3 - Labs CBC & Chem 7: 11/05/21 07:14 11/05/21 07:14 Labs: Abnormal Lab Results - Last 24 Hours (Table) 11/04/21 11/04/21 11/04/21 Range/Units 07:23 07:23 07:23 WBC 16.58 H (4.50-10.00) X 10*3/uL RDW 15.7 H (11.5-14.5) % Immature Gran # 0.09 H (0.00-0.04) X 10*3/uL Neutrophils # 13.79 H (1.80-7.70) X 10*3/uL Monocytes # 1.28 H (0.20-1.00) X 10*3/uL Eosinophils # 0.42 H (0.04-0.35) X 10*3/uL Glucose 164 H (70-110) mg/dL POC Glucose (mg/dL) (70-110) mg/dL Hemoglobin A1c 6.5 H (0.0-6.0) % Calcium 8.3 L (8.7-10.3) mg/dL 11/04/21 11/04/21 11/04/21 Range/Units 12:40 16:57 21:37 WBC (4.50-10.00) X 10*3/uL RDW (11.5-14.5) % Immature Gran # (0.00-0.04) X 10*3/uL Neutrophils # (1.80-7.70) X 10*3/uL Monocytes # (0.20-1.00) X 10*3/uL Eosinophils # (0.04-0.35) X 10*3/uL Glucose (70-110) mg/dL POC Glucose (mg/dL) 126 H 123 H 148 H (70-110) mg/dL Hemoglobin A1c (0.0-6.0) % Calcium (8.7-10.3) mg/dL 11/05/21 Range/Units 07:04 WBC (4.50-10.00) X 10*3/uL RDW (11.5-14.5) % Immature Gran # (0.00-0.04) X 10*3/uL Neutrophils # (1.80-7.70) X 10*3/uL Monocytes # (0.20-1.00) X 10*3/uL Eosinophils # (0.04-0.35) X 10*3/uL Glucose (70-110) mg/dL POC Glucose (mg/dL) 138 H (70-110) mg/dL Hemoglobin A1c (0.0-6.0) % Calcium (8.7-10.3) mg/dL
[2021-11-05] MEDS: FLUTICASONE 50MCG/SPRAY NASAL 16GM EA NOSTRIL SCH (09:40)
[2021-11-05 10:06] VITALS: BP 138/79; PULSE 65
[2021-11-05 11:29] LABS: Glucose,Whole Blood 120 mg/dL (70-110)
[2021-11-05 11:52] LABS: HCT 36.8 % (39.6-50.0); HGB 11.8 g/dL (13.0-17.0); MCH 29.1 pg (27.0-32.0); MCHC 32.1 g/dL (32.0-37.0); MCV 90.9 fL (80.0-97.0); Mean Platelet Volume 11.9 fL (9.5-12.2); NRBC Per 100 WBC 0 /100 WBCS (0.0-0.0); Platelet Count 155 X 10*3/uL (140-440); RBC 4.05 X 10*6/uL (4.40-5.60); RDW 15.6 % (11.5-14.5); WBC 15.77 X 10*3/uL (4.50-10.00)
[2021-11-05 12:01] LABS: African American GFR (CKD) 105.1 (60.0-200.0); Albumin 3.6 g/dL (3.8-4.9); Albumin/Globulin Ratio 1.64 (1.60-3.17); Anion Gap 10.6 mmol/L (10.00-18.00); BUN/Creat Ratio 16.28 Ratio (12.00-20.00); Blood Urea Nitrogen 14.6 mg/dL (9.0-27.0); Calcium 8.2 mg/dL (8.7-10.3); Carbon Dioxide 25.8 mmol/L (20.0-27.5); Globulin 2.2 g/dL (1.6-3.3); Non-African American GFR(CKD) 90.7 (60.0-200.0); Potassium 4.4 mmol/L (3.5-5.5); Total Bilirubin 0.6 mg/dL (0.30-1.20); Total Protein 5.8 g/dL (6.2-8.2)
[2021-11-05] MEDS: LACTATED RINGERS 1,000 ML IV SCH (12:09)
[2021-11-05] MEDS: SODIUM CHLORIDE 0.9% 1,000 ML IV SCH (12:10)
== END 2021-11-05 12:53 | disposition home or self-care (01) ==
LOC: OR 10:39 → EDSTATUS 11:00 → 4SSUR 17:04 → OR 11-04 13:43
PROVIDERS: ADMIT Orthopaedic Surgery Orthopaedic Surgery of the Spine; ATTEND Orthopaedic Surgery Orthopaedic Surgery of the Spine
DX: M48.061 Spinal stenosis, lumbar region without neurogenic claudication (principal); M47.26 Other spondylosis with radiculopathy, lumbar region; M51.16 Intervertebral disc disorders with radiculopathy, lumbar region; Z98.890 Other specified postprocedural states; I10 Essential (primary) hypertension; E78.5 Hyperlipidemia, unspecified; E11.9 Type 2 diabetes mellitus without complications; K58.1 Irritable bowel syndrome with constipation; J45.909 Unspecified asthma, uncomplicated; J44.9 Chronic obstructive pulmonary disease, unspecified; M41.9 Scoliosis, unspecified; F17.200 Nicotine dependence, unspecified, uncomplicated; K21.9 Gastro-esophageal reflux disease without esophagitis; N40.0 Benign prostatic hyperplasia without lower urinary tract symptoms; R63.4 Abnormal weight loss; K30 Functional dyspepsia; Z97.3 Presence of spectacles and contact lenses; Z79.52 Long term (current) use of systemic steroids; Z79.84 Long term (current) use of oral hypoglycemic drugs; Z79.82 Long term (current) use of aspirin; Z79.899 Other long term (current) drug therapy; Z88.6 Allergy status to analgesic agent; Z88.8 Allergy status to other drugs, medicaments and biological substances
CPT/HCPCS: 22630; 22632; 22614 ×2; 20931; 20936; 97116; 97161; 86900; 86901; 80053; 80048; 85025; 85027; 86850; 83036; 72100; G0378 ×2; C1713 ×2; C1762; J2250; J0330; J0360; J1940; J2710; J0690 ×3; J2405 ×2; J3010; J1170 ×5; J2370; J2704; J2001